=== PATIENT | male | born 1980 | race Caucasian/White ===

== ENCOUNTER 2019-02-19 10:36 | Inpatient (IN) ==
[2019-02-19] MEDS ORDERED: IPRATROPIUM/ALBUTEROL SULFATE 3 ML NEB NEB ONE ×2 (10:39→10:41)
[2019-02-19] MEDS ORDERED: DEXAMETHASONE PF 10 MG/1 ML VIAL IVP ONE (10:39)
[2019-02-19] MEDS ORDERED: Sodium Chloride 0.9% 1,000 ML PRIMARY IV ONE (10:39)
[2019-02-19] MEDS ORDERED: LORazepam 2 MG/1 ML VIAL IVP ONE (10:40)
[2019-02-19 11:16] LABS: BASOPHILS # (AUTO) 0.02 10*3/UL; BASOPHILS % (AUTO) 0.1 % (0-1); EOSINOPHILS # (AUTO) 0.02 10*3/UL; EOSINOPHILS % (AUTO) 0.1 % (0-8); Hematocrit [HCT] 54.6 % (42.0-52.0); LYMPHOCYTES # (AUTO) 2.21 10*3/uL; MEAN CORPUSCULAR VOLUME 92.9 FL (80-90); MEAN PLATELET VOLUME 9.5 FL (7.4-12.2); MONOCYTES # (AUTO) 1.73 10*3/UL (0.3-0.8); MONOCYTES % (AUTO) 9.6 % (5-15); NEUTROPHILS # (AUTO) 13.95 10*3/UL; NEUTROPHILS % (AUTO) 77.7 % (50-80); RED BLOOD COUNT 5.88 10^6/uL (4.70-6.10)
[2019-02-19 11:17] LABS: PLATELET MORPHOLOGY COMMENT NORMAL MORPHOLOGY (NORM); RBC MORPHOLOGY COMMENT NORMAL MORPHOLOGY (NORM); WBC MORPHOLOGY COMMENT NORMAL MORPHOLOGY (NORM)
[2019-02-19 11:29] LABS: BLOOD UREA NITROGEN 10 mg/dL (7-22); BUN/CREATININE RATIO 8.33 (6-20); SERUM ALBUMIN 4.7 g/dL (3.5-4.8)
[2019-02-19] MEDS ORDERED: Magnesium Sulfate 2gm (Premix) 2 GM/50 ML BAG IV ONE (12:34)
[2019-02-19 13:09] LABS: VENOUS PH 7.41 (7.32-7.42)
[2019-02-19] MEDS ORDERED: LIDOCAINE W/ SODIUM BICARB 0.5 ML SYR SUBD PRN (14:27)
[2019-02-19] MEDS ORDERED: cefTRIAXone Inj 2 GM in Sodium Chloride 0.9% 100 ML IV SCH (14:27)
[2019-02-19] MEDS: methylPREDNISolone 125 MG/2 ML VIAL IVP SCH ×2 (14:55→20:17)
[2019-02-19] MEDS: HEPARIN 5000 UNIT/1 ML SUBCUT SCH ×2 (14:57→21:50)
[2019-02-19] MEDS: IPRATROPIUM/ALBUTEROL SULFATE 3 ML NEB NEB SCH ×2 (15:03→18:25)
[2019-02-19] MEDS: FLUTICASONE/SALMETEROL 100/50 UD INHALER INH SCH (18:26)
[2019-02-19] MEDS: BENZONATATE 200 MG CAPSULE PO PRN ×2 (19:11→23:38)
[2019-02-19] MEDS: ACETAMINOPHEN 500 MG TABLET PO PRN (19:37)
[2019-02-20] MEDS: methylPREDNISolone 125 MG/2 ML VIAL IVP SCH (02:16)
[2019-02-20 05:22] LABS: BASOPHILS # (AUTO) 0.01 10*3/UL; BASOPHILS % (AUTO) 0.1 % (0-1); EOSINOPHILS # (AUTO) 0 10*3/UL; EOSINOPHILS % (AUTO) 0 % (0-8); Hematocrit [HCT] 48.9 % (42.0-52.0); LYMPHOCYTES # (AUTO) 0.86 10*3/uL; MEAN CORPUSCULAR HGB CONC 32.7 g/dL (33-37); MEAN CORPUSCULAR VOLUME 93.9 FL (80-90); MEAN PLATELET VOLUME 9.6 FL (7.4-12.2); MONOCYTES # (AUTO) 0.36 10*3/UL (0.3-0.8); MONOCYTES % (AUTO) 2.2 % (5-15); NEUTROPHILS # (AUTO) 15.34 10*3/UL; NEUTROPHILS % (AUTO) 92.1 % (50-80); RED BLOOD COUNT 5.21 10^6/uL (4.70-6.10)
[2019-02-20 05:41] LABS: BLOOD UREA NITROGEN 11 mg/dL (7-22)
[2019-02-20 05:48] LABS: PLATELET MORPHOLOGY COMMENT NORMAL MORPHOLOGY (NORM); RBC MORPHOLOGY COMMENT NORMAL MORPHOLOGY (NORM); WBC MORPHOLOGY COMMENT NORMAL MORPHOLOGY (NORM)
[2019-02-20] MEDS: HEPARIN 5000 UNIT/1 ML SUBCUT SCH (06:15)
[2019-02-20] MEDS: IPRATROPIUM/ALBUTEROL SULFATE 3 ML NEB NEB SCH ×2 (06:30→10:27)
[2019-02-20] MEDS: FLUTICASONE/SALMETEROL 100/50 UD INHALER INH SCH (06:32)
[2019-02-20] MEDS: ACETAMINOPHEN 500 MG TABLET PO PRN (06:59)
[2019-02-20] MEDS: BENZONATATE 200 MG CAPSULE PO PRN (06:59)
[2019-02-20] MEDS ORDERED: cefTRIAXone Inj 2 GM in Sodium Chloride 0.9% 100 ML IV SCH (08:15)
[2019-02-20] MEDS ORDERED: GUAIFENESIN/CODEINE SYRUP 100 MG/ 10 MG/ 5 ML UD CUP PO PRN (09:04)
[2019-02-20 12:04] VITALS: BP 119/68; RESP 32; TEMP 98.2; O2SAT 92
[2019-02-20] MEDS ORDERED: DEXAMETHASONE PF 10 MG/1 ML VIAL IVP ONE (12:08)
[2019-02-20] MEDS ORDERED: Magnesium Sulfate 2gm (Premix) 2 GM/50 ML BAG IV ONE (12:24)
[2019-02-20] MEDS ORDERED: Sodium Chloride 0.9% 1,000 ML PRIMARY IV ONE ×3 (12:30→14:59)
[2019-02-20] MEDS ORDERED: LORazepam 2 MG/1 ML VIAL ONE (12:50)
[2019-02-20] MEDS ORDERED: MIDAZOLAM 5 MG/1 ML ONE (13:00)
[2019-02-20] MEDS ORDERED: KETAMINE 100 MG/1 ML - 5 ML ONE (13:00)
[2019-02-20] MEDS ORDERED: PROPOFOL 10 MG/1 ML (200 MG/20 ML) VIAL IV ONE ×2 (13:00→17:13)
[2019-02-20] MEDS ORDERED: fentaNYL Inj 250 MCG/5 ML VIAL ONE (13:01)
[2019-02-20] MEDS ORDERED: SUCCINYLCHOLINE CHLORIDE 20 MG/1 ML - 10 ML ONE (13:06)
[2019-02-20] MEDS ORDERED: CEFEPIME 2 GM VIAL IV SCH (13:15)
[2019-02-20] MEDS ORDERED: fentaNYL Inj 100 MCG/2 ML VIAL ONE (13:27)
[2019-02-20] MEDS ORDERED: fentaNYL Inj 100 MCG/2 ML VIAL IVP PRN (13:27)
[2019-02-20] MEDS ORDERED: fentaNYL Inj 250 MCG/5 ML VIAL IVP ONE (13:28)
[2019-02-20] MEDS ORDERED: Vancomycin 1.5 gm (Premix) 1.5 GM/300 ML PIGGYBACK IV SCH (13:30)
[2019-02-20] MEDS ORDERED: IPRATROPIUM/ALBUTEROL SULFATE 3 ML NEB NEB SCH (13:30)
[2019-02-20] MEDS ORDERED: Propofol 1,000 MG/100 ML VIAL IV SCH (13:30)
[2019-02-20] MEDS ORDERED: Cefepime Inj 2 GM in Sodium Chloride 0.9% 100 ML IV SCH (13:45)
[2019-02-20] MEDS ORDERED: SODIUM CHLORIDE 0.9% IV SCH (13:45)
[2019-02-20] MEDS ORDERED: FENTANYL IV SCH (13:45)
[2019-02-20 14:17] LABS: BASOPHILS # (AUTO) 0.01 10*3/UL; BASOPHILS % (AUTO) 0 % (0-1); EOSINOPHILS # (AUTO) 0 10*3/UL; EOSINOPHILS % (AUTO) 0 % (0-8); Hematocrit [HCT] 48.7 % (42.0-52.0); Hemoglobin [HGB] 15.9 g/dL (14.0-18.0); LYMPHOCYTES # (AUTO) 0.96 10*3/uL; MEAN CORPUSCULAR HGB CONC 32.6 g/dL (33-37); MEAN CORPUSCULAR VOLUME 94.6 FL (80-90); MEAN PLATELET VOLUME 9.4 FL (7.4-12.2); MONOCYTES # (AUTO) 1.22 10*3/UL (0.3-0.8); MONOCYTES % (AUTO) 5.4 % (5-15); NEUTROPHILS # (AUTO) 20.45 10*3/UL; RED BLOOD COUNT 5.15 10^6/uL (4.70-6.10)
[2019-02-20 14:18] LABS: PLATELET MORPHOLOGY COMMENT NORMAL MORPHOLOGY (NORM); RBC MORPHOLOGY COMMENT NORMAL MORPHOLOGY (NORM); WBC MORPHOLOGY COMMENT NORMAL MORPHOLOGY (NORM)
[2019-02-20 14:19] LABS: ABG PCO2 28 MMHG (34-38); ABG PH 7.45 (7.35-7.45); ABG PO2 64 MMHG (65-75); COLLECTION SITE R Rad X1
[2019-02-20 14:20] LABS: ABG BASE EXCESS -5 MMOL/L (-2-2); ABG OXYGEN SATURATION 93 % (90-100)
[2019-02-20 14:21] LABS: ABG PH 7.32 (7.35-7.45); COLLECTION SITE L Rad X2
[2019-02-20 14:22] LABS: ABG BASE EXCESS -3 MMOL/L (-2-2); ABG OXYGEN SATURATION 90 % (90-100); ABG PCO2 45 MMHG (34-38); ABG PO2 63 MMHG (65-75)
[2019-02-20 14:26] LABS: BLOOD UREA NITROGEN 13 mg/dL (7-22); BUN/CREATININE RATIO 11.81 (6-20); SERUM ALBUMIN 3.7 g/dL (3.5-4.8)
[2019-02-20] MEDS ORDERED: Propofol 1,000 MG/100 ML VIAL IV ONE (15:16)
[2019-02-20] MEDS ORDERED: Lactated Ringers 1,000 ML PRIMARY IV ONE (15:28)
[2019-02-20] MEDS ORDERED: HYDROmorphone 2 MG/1 ML ONE (17:15)
[2019-02-21] MEDS ORDERED: AZITHROMYCIN 250 MG TABLET PO SCH (13:20)
== END 2019-02-20 15:26 | disposition short-term general hospital (02) | DRG 195 ==
LOC: MED/SURG 10:36 → ER 10:36 → MED/SURG 14:29 → ICU 02-20 12:16
PROVIDERS: ADMIT Internal Medicine; ATTEND Internal Medicine